=== PATIENT | female | born 1975 | race Caucasian/White ===

== ENCOUNTER 2019-02-28 13:33 | Emergency (ER) | payer OTHER ==
--- NOTE | 2019-02-28 14:25 | EDM.PDOC ---
ED HPI GENERAL MEDICAL PROBLEM - General Chief Complaint: Chest Pain Stated Complaint: SOB, CHEST PAIN Time Seen by Provider: 02/28/19 13:45 Source of Information: Reports: Patient, Family History Limitations: Reports: No Limitations - History of Present Illness INITIAL COMMENTS - FREE TEXT/NARRATIVE: 43-year-old female arrives with chest pain. She had a hysterectomy 1 week ago, and yesterday felt short of breath with activity, and today was short of breath at rest. 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 She has no peripheral edema, no significant nausea vomiting, or diaphoresis. She has a slight pleuritic type lateral chest pain on the left side, somewhat worse with breathing. On arrival she was hyperventilating mildly. O2 sats were 100%. Associated Symptoms: Reports: No Other Symptoms. Denies: Fever/Chills, Headaches, Loss of Appetite, Malaise Chest Pain Score (Numeric/FACES): 2 - Related Data Allergies Allergy/AdvReac Type Severity Reaction Status Date / Time No Known Allergies Allergy Verified 02/28/19 13:55 Home Meds: Home Meds Levothyroxine Sodium [Synthroid] 100 mcg PO ACBREAKFAST 02/28/19 [History] oxyCODONE 5 mg PO Q4HR 02/28/19 [History] Past Medical History [employer] History: Reports: Dysfunctional Uterine Bleeding Endocrine/Metabolic History: Reports: Hypothyroidism - Past Surgical History Female Surgical History: Reports: Hysterectomy Social & Family History - Tobacco Use Smoking Status *Q: Never Smoker - Caffeine Use Caffeine Use: Reports: Soda - Recreational Drug Use Recreational Drug Use: No ED ROS GENERAL - Review of Systems Review Of Systems: See Below Constitutional: Denies: Fever, Chills HEENT: Reports: No Symptoms Respiratory: Reports: Shortness of Breath Cardiovascular: Reports: Chest Pain (Left-sided, sharp) GI/Abdominal: Denies: Abdominal Pain, Nausea, Vomiting Skin: Reports: No Symptoms Neurological: Reports: No Symptoms. Denies: Headache Psychiatric: Reports: No Symptoms ED EXAM, GENERAL - Physical Exam Exam: See Below Exam Limited By: No Limitations General Appearance: Alert, No Apparent Distress Head: Atraumatic Respiratory/Chest: No Respiratory Distress, Lungs Clear Cardiovascular: Regular Rate, Rhythm. No: Tachycardia Extremities: Normal Inspection. No: Pedal Edema Neurological: Alert, Oriented Psychiatric: Normal Affect, Normal Mood Skin Exam: Warm, Dry EKG INTERPRETATION Rhythm: NSR Course - Vital Signs Last Recorded V/S: Last Vital Signs Temp 98.8 F 02/28/19 13:40 Pulse 67 02/28/19 13:40 Resp 17 02/28/19 13:40 BP 138/89 02/28/19 13:40 Pulse Ox 100 02/28/19 13:40 - Orders/Labs/Meds Orders: Active Orders 24 hr Category Date Time Status EKG Documentation Completion [RC] ASDIRECTED Care 02/28/19 13:53 Active EKG 12 Lead [EK] Routine Ther 02/28/19 13:53 Ordered Labs: Laboratory Tests 02/28/19 02/28/19 02/28/19 Range/Units 13:52 13:53 13:53 WBC 6.8 (4.5-11.0) K/uL RBC 3.98 (3.30-5.50) M/uL Hgb 12.3 (12.0-15.0) g/dL Hct 37.8 (36.0-48.0) % MCV 95 (80-98) fL MCH 31 (27-31) pg MCHC 33 (32-36) % Plt Count 261 (150-400) K/uL Neut % (Auto) 63 (36-66) % Lymph % (Auto) 21 L (24-44) % [place] % (Auto) 13 H (2-6) % Eos % (Auto) 3 (2-4) % Baso % (Auto) 0 (0-1) % Sodium 141 (140-148) mmol/L Potassium 3.9 (3.6-5.2) mmol/L Chloride 104 (100-108) mmol/L Carbon Dioxide 29 (21-32) mmol/L Anion Gap 8.5 (5.0-14.0) mmol/L BUN 16 (7-18) mg/dL Creatinine 0.9 (0.6-1.0) mg/dL Est Cr Clr Drug Dosing 85.10 mL/min Estimated GFR (MDRD) > 60 (>60) Glucose 74 (74-106) mg/dL Calcium 9.0 (8.5-10.1) mg/dL Total Bilirubin 0.2 (0.2-1.0) mg/dL AST 16 (15-37) U/L ALT 44 (12-78) U/L Alkaline Phosphatase 72 (46-116) U/L Troponin I < 0.017 (0.000-0.056) ng/mL Total Protein 6.8 (6.4-8.2) g/dL Albumin 3.5 (3.4-5.0) g/dL Globulin 3.3 (2.3-3.5) g/dL Albumin/Globulin Ratio 1.1 L (1.2-2.2) - Re-Assessments/Exams Free Text/Narrative Re-Assessment/Exam: 02/28/19 14:24 Initial EKG was reassuring. O2 saturations initially were 100%, no O2 given and pulse was 70. Patient was reassured initially and she started to settle down, symptoms resolving and her pulse slowed. CBC, CMP and two-view chest x-ray were obtained. 02/28/19 14:39 CBC CMP and two-view chest x-ray were all basically normal. Troponin was negative. Vitals normalize to a pulse of 58-62, O2 saturations maintained 99%. PE likelihood is very unlikely, patient was reassured and will return if symptoms persist. She felt better after the reassurance. Departure - Departure Time of Disposition: 15:14 Disposition: Home, Self-Care 01 Condition: Good Clinical Impression: Atypical chest pain - Discharge Information Instructions: Nonspecific Chest Pain, [id number] Referrals: PCP,None [Primary Care Provider] - Forms: ED Department Discharge Care Plan Goals: Continue any current medications and increase activity as tolerated. Return anytime if worsening such as increasing shortness of breath, fever, or you develop other concerns. Consider rechecking in 2-3 days if not improving satisfactorily. - My Orders Last 24 Hours: My Active Orders 02/28/19 13:53 EKG Documentation Completion [RC] ASDIRECTED EKG 12 Lead [EK] Routine - Assessment/Plan Last 24 Hours: My Active Orders 02/28/19 13:53 EKG Documentation Completion [RC] ASDIRECTED EKG 12 Lead [EK] Routine
--- NOTE | 2019-02-28 14:32 | CRLCR ---
INDICATION: Dyspnea TECHNIQUE: Chest radiograph 2 views COMPARISON: None FINDINGS: Mediastinum: The mediastinum is normal in appearance. The heart silhouette is normal in size and morphology. Lung: Both lungs are unremarkable in appearance. No sign of pleural effusion seen. No pneumothorax is identified. Musculoskeletal: Unremarkable for age. IMPRESSION: 1. No acute cardiopulmonary disease is seen. Dictated by: Moncho Ford MD @ 02/28/2019 14:29:54 (Electronically Signed)
== END 2019-02-28 15:00 | disposition home or self-care (01) ==
LOC: JP.ED 13:33
DX: R07.89 Other chest pain (principal); E03.9 Hypothyroidism, unspecified; Z79.899 Other long term (current) drug therapy; Z90.710 Acquired absence of both cervix and uterus
CPT/HCPCS: 36415; 71046; 80053; 84484; 85025; 93005; 99285-25